=== PATIENT | male | born 1975 | race Caucasian/White ===

== ENCOUNTER 2024-01-01 18:12 | Emergency (ER) | payer OTHER, SELFPAY ==
[2024-01-01 18:21] VITALS: BP 112/81
[2024-01-01] MEDS: MOTRIN 600 MG PO (19:42)
[2024-01-01] MEDS: ADACEL 0.5 ML IM (21:57)
[2024-01-01 22:08] VITALS: BP 118/83
--- NOTE | 2024-01-02 00:49 | ED.GENMED ---
History of Present Illness
General
Chief Complaint: Skin Problem
Source: patient
Exam Limitations: none
Time Seen by Provider: 01/01/24 20:55
Nursing documentation reviewed up to this point in time: agreed with
Travel History
Have you had any contact with someone who has COVID-19?: No
Do you have any symptoms of coronavirus? Fever > 100 degrees, chills, cough, shortness of breath, sore throat, loss of taste or smell, muscle aches, or headache?: No
History of Present Illness
History of Present Illness:
48 y/o M right hand dominant
here with left volar wrist laceration linear ulnar aspect when he was cleaning a ceramic dish that shattered
he went to catch it and got stuck in the wrist
does not suspect that there is fb in the wound
has some mild proximal tingling just proximal to thewound
no distal tingling
bleeding controlled
had a tight bandaid adhesive dressing over the wound
tetanus not UTD
Past History
Past History
ED Past Medical History: None
ED Past Surgical History: None
Social History
Tobacco: Non-smoker
Alcohol: None
Review of Systems
Review of Systems
Allergies reviewed?: Yes
All Other Systems: Not applicable
Phy Exam
Physical Exam
Physical Exam:
GENERAL: Alert , in no apparent distress
CARDIAC: right radial pulse and ulnar pulse intact
no pulstatile bleeding from wound
cap refill intact
s
NEUROLOGICAL: Alert and oriented, no focal neuro deficits, sensation intact
no funtiaonl motor deficits
do not suspect ulnar nerve injury
he does have some subjective tingling proximal to the wound
there is an area of raised erythema proximal to the wound
this is secondary to the adhesive from the bandage pt had in place, the shape is cosnistent with that
SKIN: Warm and dry,
4 cm laceration linear left volar wrist
MUSCULOSKELETAL: full ROM, no deficits
PSYCH: Normal and appropriate interaction.
Course
Orders/Labs/Results
Orders:
Orders
01/01/24 19:40
Ibuprofen [Motrin] 600 mg .ROUTE .STK-MED ONE
01/01/24 19:41
Ibuprofen [Motrin] 600 mg PO NOW STA
01/01/24 21:48
Tetanus/Diphth/Acelpertussis [Adacel] 0.5 ml IM .ONCE ONE
Vital Signs
Initial and Last Documented VS:
Initial Vital Signs
Temp Pulse Resp BP Pulse Ox
98.7 F 86 18 112/81 96
01/01/24 18:21 01/01/24 18:21 01/01/24 18:21 01/01/24 18:21 01/01/24 18:21
Last Documented Vital Signs
Temp Pulse Resp BP Pulse Ox
98.7 F 78 18 118/83 96
01/01/24 18:21 01/01/24 22:08 01/01/24 18:21 01/01/24 22:08 01/01/24 18:21
Procedures
Laceration Closure
Left Ulnar Wrist:
Status of Wound: clean
Size of Wound in cm: 4
Description of Wound Edges: sharp and flap-well vascularized
Preparation: cleaned with saline
Anesthesia: 1% Lidocaine
Revision/Debridement: routine- no revision
Wound exploration: explored to base- no FB
Type of Closure: single layer closure
Skin Closure Material: 5-0 nylon
Number of sutures: 7
MDM/Problems Addressed
Differential Diagnosis Includes:
laceration, ulnar nerve injury, parestheisa
MDM/Problems Addressed:
48 y/o M with no sig pmh
here with left wrist laceration volar aspect ulnar side linear
no obvious tendon/nerve injury/defiicts
pt has some sensory tingling/paresthesias proximally in a 1 cm area just proximal to the wound
int his area there is also evidence of a contact derm from adhesive sensitivty
normal distal function
normal cap refill
alceration cirreigated
and closed with stuures
tetanus updated
discussed xray but pt decined, does not appear to have had small pieces of the ceramic dish in his wound and does not report this in the story
*Critical Care Note
Total Time (30-74mins, 75-104mins- exclusive of procedures): Not Applicable
ED Attending Note
-
Portions of this chart may have been created with voice recognition software.� Occasional wrong word or��sound alike� substitutions may have occurred due to the inherent limitations of voice recognition software.
Discharge Plan
Departure
Patient Disposition: Home (Routine Discharge)
Date of Disposition: 01/01/24
Time of Disposition: 21:48
Patient with high blood pressure during this ER visit?: No
Condition: Fair
Covid-19: Not Applicable
Discharge Problem:
Laceration of left wrist
Instructions: Laceration Repair With Stitches ED
Referrals:
Miguel Waterman DO [Family Provider] - Follow up in 1 week (FOLLOW UP 7-10 DAYS FOR SUTURE REMOVAL)
Noah Rivera MD [Active] - Follow up in 5-7 days (HAND DOCTOR NEEDED)
Activity Restrictions/Additional Instructions:
KEEP THE WOUND CLEAN AND DRY FOR 24 HOURS
AFTER THAT YOU CAN GET IT WET IN THE BATH/SHOWER ONCE A DAY AND MAKE SURE IT IS CLEAN AND THERE IS NO DRIED BLOOD ON THE STITCHES
APPLY NEOSPORIN AND A BANDAID
THE STITCHES NEED TO BE REMOVED IN ABOUT 7-10 DAYS, SEE YOUR DOCTOR FOR THIS.
THE LAST DAY BEFORE STITCHES OUT, NO OINTMENT, LEAVE OPEN TO AIR
WATCH FOR SIGNS OF INFECTION AND RETURN NEEDED FOR PAIN, SWELLING, REDNESS, DRAINAGE, BLEEDING.
MOTRIN NEEDED FOR PAIN.
If you continue to have some numbness around the wound you should follow-up with a hand doctor. Call for an appointment. Return for any weakness or sensory changes distally in your fingers or skin changes or any concerns
Interventions
Interventions:
*Risk Screen - Suicide Last Done: 01/01/24 22:08
*General Assessment Last Done: 01/01/24 22:06
*Neglect/Abuse Screening Last Done: 01/01/24 22:06
*Nursing Disposition Last Done: 01/01/24 22:08
ED-Skin Assessment Last Done: 01/01/24 19:23
Discharge Date and Time
Discharge Date/Time: 01/01/24 22:09
Print Language: WOLOF
== END 2024-01-01 22:09 | disposition home or self-care (01) ==
LOC: EMR 18:12
PROVIDERS: EMERGENCY PHYSICIAN Emergency Medicine; FAMILY PHYSICIAN Family Medicine
DX: S61.512A Laceration without foreign body of left wrist, initial encounter (principal); R20.2 Paresthesia of skin; W45.8XXA Other foreign body or object entering through skin, initial encounter; W26.8XXA Contact with other sharp object(s), not elsewhere classified, initial encounter; Y93.E9 Activity, other interior property and clothing maintenance; Z23 Encounter for immunization
CPT/HCPCS: 99283; 12002; 90715

== ENCOUNTER → 2024-04-19 10:00 | Outpatient (REF) | payer OTHER, SELFPAY | LOC: DHSLP 10:00 | PROVIDERS: ATTENDING PHYSICIAN Internal Medicine; FAMILY PHYSICIAN Family Medicine | DX: G47.19 Other hypersomnia (principal); R06.83 Snoring | CPT/HCPCS: 95800 ==

== ENCOUNTER → 2024-06-14 09:54 | Outpatient (REF) | payer OTHER, SELFPAY | LOC: DHSLP 09:54 | PROVIDERS: ATTENDING PHYSICIAN Internal Medicine; FAMILY PHYSICIAN Family Medicine | DX: G47.19 Other hypersomnia (principal); R06.83 Snoring | CPT/HCPCS: 95810 ==